=== PATIENT | female | born 1995 | race Two or more races ===

== ENCOUNTER 2023-04-26 11:56 | Inpatient (IN) | payer OTHER ==
[~2023-04-26] VITALS: Ht 170.2 cm; Wt 125.2 kg
[2023-05-05] MEDS ORDERED: PRENATAL + DHA1 EAC1 PO (08:22)
[2023-05-08] MEDS ORDERED: IBUPROFEN800 MG PO (08:37)
== END 2023-05-08 11:03 | disposition home or self-care (01) | DRG 788 ==
LOC: O/R 05-05 07:06 → LDR 05-05 07:06 → O/R 05-05 14:12 → OB/GYN 05-05 17:55
PROVIDERS: Obstetrics & Gynecology; ADMIT Specialist; ATTEND Specialist
PROC: 4A1HXCZ Monitoring of Products of Conception, Cardiac Rate, External Approach (ICD-10-PCS; 2023-05-05)
PROC: 10D00Z1 Extraction of Products of Conception, Low, Open Approach (ICD-10-PCS; principal; 2023-05-05 15:00)
DX: O62.0 Primary inadequate contractions (principal); O99.824 Streptococcus B carrier state complicating childbirth; Z3A.39 39 weeks gestation of pregnancy; Z37.0 Single live birth; Z20.822 Contact with and (suspected) exposure to COVID-19

== ENCOUNTER 2024-04-25 10:51 | Outpatient (CLI) | payer OTHER ==
[~2024-04-25 10:51] MED LIST: IBUPROFEN800 MG PO; PRENATAL + DHA1 EAC1 PO
== END 2024-04-25 11:01 | disposition home or self-care (01) ==
LOC: SONOGRAMA 10:51
PROVIDERS: ATTEND Specialist
DX: O00.01 Abdominal pregnancy with intrauterine pregnancy (principal)

== ENCOUNTER 2024-04-26 06:47 | Day surgery (SDC) | payer OTHER ==
[2024-04-25 13:22] LABS: HEMATOCRIT 39.1 % (36.0-45.00); HEMOGLOBIN 13.2 g/dL (12.0-15.00); MEAN CELL VOLUME 86.3 fL (80.00-100.00); MEAN CORPUSCULAR HEMOGLOBIN 29.1 pg (27.00-32.0); MEAN CORPUSCULAR HGB CONC 33.7 g/dl (32.0-36.0); PH,URINE 5.5 (5.0-8.0); PLATELET COUNT 228 K/uL (150-450); RED BLOOD COUNT 4.52 M/uL (4.00-6.00); RED CELL DISTRIBUTION WIDTH 14.3 % (11.5-14.5); URINE APPEARANCE Clear; URINE BILIRRUBIN Negative (NEGATIVE); URINE BLOOD Moderate; URINE COLOR Yellow; URINE GLUCOSE Negative (NEGATIVE); URINE KETONE Trace (NEGATIVE); URINE LEUKOCYTE Negative; URINE NITRATE Negative; URINE PROTEIN Negative (NEGATIVE); URINE UROBILINOGEN 0.2 E.U./dl
[2024-04-25 13:25] LABS: URINE BACTERIA 70.7 uL (0.0-1933); URINE RBC 49.4 uL (0.0-20.8); URINE WBC 2.9 uL (0.0-23.2)
[2024-04-26 08:01] LABS: PARTIAL THROMBOPLASTIN TIME 29.9 SECONDS (22.0-34.0); PROTHROMBIN TIME 10.9 SECONDS (9.0-11.5)
[2024-04-26] MEDS ORDERED: CEFAZOLIN SODIUM 1,000 MG VIAL ONE (09:32)
[2024-04-26] MEDS ORDERED: POVIDONE-IODINE 118 ML BOTT TOP ONE (10:21)
[2024-04-26] MEDS ORDERED: OXYTOCIN 10 UNITS/ML VIAL ONE (10:21)
== END 2024-04-26 15:35 | disposition home or self-care (01) ==
LOC: CIR.AMB 06:47
PROVIDERS: ATTEND Specialist
DX: O02.1 Missed abortion (principal)